=== PATIENT | female | born 2000 | race Caucasian/White ===

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

== ENCOUNTER 2021-08-26 12:15 | Day surgery (SDC) | payer OTHER ==
[~2021-08-26 12:15] MED LIST: SODIUM CHLORIDE 0.9% 1,000 ML IV SCH
[2021-08-26] MEDS ORDERED: SODIUM CHLORIDE 0.9% 500 ML 500 ML IV ONE (12:33)
[2021-08-26 12:47] VITALS: RESP 16; TEMP 98
[2021-08-26 17:35] VITALS: BP 139/78; PULSE 78
--- NOTE | 2021-08-26 19:24 | P.EPPROC ---
- EP Procedure Note Electrophysiology Procedure Note: Diagnosis Recurrent syncope Twelve-lead EKG showed sinus rhythm with normal TN narrow QRS normal ST segments Normal QT interval Vasovagal episode during IV line placement The patient had a syncopal spell, vasovagal spell with IV line placement She was treated with IV fluids and thereafter the tilt table testing was performed after waiting period of about 30 minutes Tilt table test will protocol Baseline blood pressure 121/61 mmHg, Baseline heart rate 81 beats a minute Patient was tilted upright at an angle of 70 degrees per protocol There was an immediate drop in blood pressure to 97/52 mmHg with associated sinus tachycardia 114 beats a minute She felt hot clammy and nauseous Following that her blood pressure normalized once again in heart rates remained in the 90s After 24 minutes she had yet another drop in blood pressure with sinus tachycardia at 115 beats a minute Once again she felt sick and heart However she recovered once again At the end of the procedure she was tired and weak but her blood pressure remained normal heart rates were in the 80s and she was laid supine Impression Normal twelve-lead EKG Vasovagal response associated with syncope with IV line placement Vasovagal phenomena but without syncope during tilt table test
== END 2021-08-26 15:08 | disposition home or self-care (01) ==
LOC: CATHEP 12:15
PROVIDERS: ATTEND Internal Medicine Clinical Cardiac Electrophysiology
DX: R55 Syncope and collapse (principal); Z20.822 Contact with and (suspected) exposure to COVID-19
CPT/HCPCS: 81025; 87635; 93660

== ENCOUNTER 2022-03-02 10:25 | Day surgery (SDC) | payer OTHER ==
[2022-03-02] MEDS ORDERED: SODIUM CHLORIDE 0.9% 1,000 ML IV ONE (10:34)
[2022-03-02] MEDS ORDERED: ONDANSETRON 4 MG/2 ML VIAL ONE (12:28)
[2022-03-02] MEDS ORDERED: fentaNYL (PF) 50 MCG/ML 2 ML AMP ONE (12:28)
[2022-03-02] MEDS ORDERED: PROPOFOL 10 MG/ML 20 ML VIAL IV ONE (12:28)
[2022-03-02] MEDS ORDERED: MIDAZOLAM 2 MG/2 ML VIAL ONE (12:28)
[2022-03-02] MEDS ORDERED: LIDOCAINE 1% INJ 10MG/ML (30 ML VIAL-PF) SQ ONE (13:15)
--- NOTE | 2022-03-02 14:11 | P.HPCAR ---
History of Present Illness This is Dr. Cifuentes dictating an H/P on this patient The patient was interviewed and examined IMPRESSION / ASSESSMENT: Recurrent palpitations despite nadolol Vasovagal phenomena and on tilt table testing Vasovagal syncope after IV line placement No syncope on Florinef PLAN: Diagnostic EP study and possible urinary frequency ablation for any inducible SVT or arrhythmia HPI Patient continues to have recurrent palpitations despite nadolol In the last one week and I asked her to hold nadolol her palpitations became worse She has not had any syncopal spells She denies any fever chills infection cough expectoration or UTI ROS: No fever chills or rigors, no cough, phlegm or expectoration, no nausea, vomiting or diarrhea, no hematuria, dysuria, no musculoskeletal complaints, no strokes or seizures, no skin lesions. EXAMINATION: Afebrile 98.5F pulse rate in the 70s normal respirations blood pressure 142/86. His mercury Breath sounds are clear no rhonchi no crackles Heart sounds is supposed 1 normal no murmurs or gallops or rub Extremities warm no edema No JVD No thyromegaly REVIEW OF LABS, ECG & MEDICAL DATA Beta-hCG normal Currently on Zoloft Synthroid Florinef and nadolol Physical Exam Vitals: Vital Signs Temp Pulse Resp BP Pulse Ox 03/02/22 10:48 98.5 F 75 16 142/86 98 Intake and Output 03/01/22 03/02/22 03/02/22 22:59 06:59 14:59 Intake Total 0 Balance 0 Intake: IV 0 Other: Weight 67.8 kg Past Medical History Past Medical History: Syncope, Thyroid Disorder Additional Past Medical History / Comment(s): Sx -"Sick dehydrated feeling", light- headed. dizziness. hot flashes at times. had elevated thyoid antibodies -. elevated heart rate- see dr cifuentes H & p History of Any Multi-Drug Resistant Organisms: None Reported Past Surgical History: No Surgical Hx Reported Past Anesthesia/Blood Transfusion Reactions: No Reported Reaction Smoking Status: Never smoker - Past Family History Mother Family Medical History: Seizure Disorder Father Family Medical History: No Reported History Physical Examination Vital Signs Temp Pulse Resp BP Pulse Ox 03/02/22 10:48 98.5 F 75 16 142/86 98 Intake and Output 03/01/22 03/02/22 03/02/22 22:59 06:59 14:59 Intake Total 0 Balance 0 Intake: IV 0 Other: Weight 67.8 kg Results Current Medications Generic Name Dose Route Start Last Admin Trade Name Shen PRN Reason Stop Dose Admin Sodium Chloride 1,000 mls @ 50 mls/hr 03/02/22 05:54 Saline 0.9% IV 04/01/22 05:55 .Q20H TAE Intake and Output 03/01/22 03/02/22 03/02/22 22:59 06:59 14:59 Intake Total 0 Balance 0 Intake: IV 0 Other: Weight 67.8 kg Patient Weight 03/03/22 06:59 Weight 67.8 kg
--- NOTE | 2022-03-02 14:47 | P.EPPROC ---
- EP Procedure Note Electrophysiology Procedure Note: Sudha Kelley/Mari Gao Nasrin underwent a diagnostic EP study for recurrent palpitations despite nadolol A diagnostic EP study was completely normal There was no evidence for AV node reentry, accessory pathway conduction or atrial tachycardia both on and off Isuprel Since she continues to have palpitations I would restart nadolol 20 mg by mouth daily She does have a fairly strong tendency for vasovagal episodes but after starting Florinef then been no syncopal spells I would watch her thyroid function on a regular basis Thank you for entrusting me with the care of the patient Warm regards Sincerely Wil Cifuentes
--- NOTE | 2022-03-02 15:00 | P.EPPROC ---
- EP Procedure Note Electrophysiology Procedure Note: Diagnosis Recurrent palpitations despite nadolol History of vasovagal syncope, no syncopal spells on Florinef Palpitations continue despite medical treatment Result Normal sinus node function No evidence for accessory pathway conduction No evidence for AV node reentry No evidence for inducible ventricular tachycardia or inducible SVT Intermittent spontaneous right bundle branch block aberrancy noted at higher sinus rates on Isuprel, normal finding Plan Restart nadolol Details Patient was brought to the EP lab in a fasting state. Under light sedation IV access was obtained in the left groin Diagnostic catheters were placed in the high right atrium, His bundle area, right ventricle and later the Bala sinus Baseline measurements are as follows and are normal Sinus cycle length 746 ms, TN interval 133 ms, QRS 101 ms and QT 397 ms Sinus recovery times at 600, 504 100 ms were 1141, 1106 and 1981 ms Chitosan so recovery times were within normal limits No evidence for any delta waves AV node Wenckebach block 360 seconds VA Wenckebach block 370 ms Art response to Parahisian pacing No evidence for slow pathway conduction No evidence for accessory pathway conduction Straight pacing and extrastimulation was performed from the right ventricle, coronary sinus and from the high right atrium This was repeated on high-dose Isuprel This was once again continued on low-dose Isuprel Straight pacing was then performed during recovery from Isuprel There was no evidence for SVT There was no evidence for VT Those was no evidence for any stroke pathway conduction accessory pathway conduction atrial tachycardia Intermittent spontaneous right bundle aberrancy noted Burst stimulation performed from multiple sites extra stimulation after triple extrastimuli performed on high-dose Isuprel Patient of the procedure well without any acute complications
[2022-03-02] MEDS ORDERED: ACETAMINOPHEN TAB 325 MG TAB PO PRN (15:58)
[2022-03-02] MEDS ORDERED: ACETAMINOPHEN IV (For NPO) 1,000 MG in EMPTY BAG 1 BAG IVPB ONE (17:00)
[2022-03-02 18:14] VITALS: RESP 18
[2022-03-02 19:53] VITALS: BP 116/63; PULSE 73; TEMP 98.7
== END 2022-03-02 20:13 | disposition home or self-care (01) ==
LOC: CATHEP 10:25 → 6NMEDSUR 14:33 → CATHEP 20:13
PROVIDERS: ATTEND Internal Medicine Clinical Cardiac Electrophysiology
DX: I47.29 Other ventricular tachycardia (principal); E03.9 Hypothyroidism, unspecified; Z82.0 Family history of epilepsy and other diseases of the nervous system; Z79.890 Hormone replacement therapy; Z79.899 Other long term (current) drug therapy
CPT/HCPCS: 93623; 93620; 84443; 81025; C1894; C1769 ×2; C1760; C1730 ×3; J2250; J2405; J2001; J3010; J2704

== ENCOUNTER 2022-03-11 17:44 | Emergency (ER) | payer OTHER ==
[2022-03-11 17:48] VITALS: RESP 16; TEMP 98.4
[2022-03-11] MEDS ORDERED: SODIUM CHLORIDE 0.9% 1,000 ML IV STA (19:34)
[2022-03-11 20:02] LABS: Basophils # (A) 0.1 k/uL (0-0.2); Basophils % (A) 1 %; Eosinophils # (A) 0.4 k/uL (0-0.7); Eosinophils % (A) 4 %; HGB 13.3 gm/dL (11.4-16.0); Lymphocytes # (A) 2.3 k/uL (1.0-4.8); Lymphocytes % (A) 27 %; MCH 30.8 pg (25.0-35.0); MCHC 33.2 g/dL (31.0-37.0); MCV 92.8 fL (80.0-100.0); Mean Platelet Volume 7.6; Monocytes # (A) 0.4 k/uL (0-1.0); Monocytes % (A) 5 %; Neutrophils # (A) 5.4 k/uL (1.3-7.7); Neutrophils % (A) 62 %; Platelet Count 334 k/uL (150-450); RBC 4.31 m/uL (3.80-5.40); RDW 13.3 % (11.5-15.5); WBC 8.8 k/uL (4.0-11.0)
[2022-03-11 20:13] LABS: ALT 15 U/L (4-34); AST 17 U/L (14-36); African American GFR (CKD) >90 (>60 ml/min/1.73 sqM); Albumin 3.9 g/dL (3.5-5.0); Alkaline Phosphatase 62 U/L (38-126); Anion Gap 7 mmol/L; Blood Urea Nitrogen 12 mg/dL (7-17); Calcium 8.9 mg/dL (8.4-10.2); Carbon Dioxide 26 mmol/L (22-30); Chloride 107 mmol/L (98-107); Glucose 91 mg/dL (74-99); INR 0.9 (<1.2); Magnesium 1.9 mg/dL (1.6-2.3); Non-African American GFR(CKD) >90 (>60 ml/min/1.73 sqM); Potassium 3.8 mmol/L (3.5-5.1); Prothrombin Time 9.8 sec (9.0-12.0); Sodium 140 mmol/L (137-145); Total Bilirubin 0.2 mg/dL (0.2-1.3); Total Protein 6.6 g/dL (6.3-8.2)
--- NOTE | 2022-03-11 20:14 | ED ---
Chest Pain HPI - General Chief Complaint: Chest Pain Stated Complaint: chest pain Time Seen by Provider: 03/11/22 19:22 Source: patient Mode of arrival: ambulatory Limitations: no limitations - History of Present Illness Initial Comments: Patient is a 21-year-old female presenting with chief complaint of chest pain. Patient states that pain is been ongoing for the last 4 hours. It is a sharp pain located primarily on the left upper side. It is worse with inspiration. It is worse on palpation. Patient also admits to worsening with movement and pu shing/pulling. She denies any shortness of breath. No palpitations or weakness. No nausea, vomiting, abdominal pain. No headache, vision or hearing changes, lower extremity swelling, numbness, tingling. Patient currently sees Dr. Luu for epidoes of tachycardia. - Related Data Home Medications Medication Instructions Recorded Confirmed Al[place]vera-28 1 tab PO DAILY 08/22/21 03/11/22 Sertraline [Zoloft] 25 mg PO DAILY 08/22/21 03/11/22 Fludrocortisone [Florinef] 0.1 mg PO DAILY 02/26/22 03/11/22 Levothyroxine Sodium [Synthroid] 25 mcg PO DAILY 02/26/22 03/11/22 nadoloL 20 mg PO DAILY 02/26/22 03/11/22 Allergies Allergy/AdvReac Type Severity Reaction Status Date / Time adhesive Allergy Rash/Hives Verified 03/11/22 20:47 Review of Systems ROS Statement: Those systems with pertinent positive or pertinent negative responses have been documented in the HPI. ROS Other: All systems not noted in ROS Statement are negative. Past Medical History Past Medical History: Syncope, Thyroid Disorder Additional Past Medical History / Comment(s): Sx -"Sick dehydrated feeling", light- headed. dizziness. hot flashes at times. had elevated thyoid antibodies -. elevated heart rate- see dr ulu H & p History of Any Multi-Drug Resistant Organisms: None Reported Past Surgical History: No Surgical Hx Reported Past Anesthesia/Blood Transfusion Reactions: No Reported Reaction Past Psychological History: ADD/ADHD, Anxiety Smoking Status: Never smoker Past Alcohol Use History: None Reported Past Drug Use History: None Reported - Past Family History Mother Family Medical History: Seizure Disorder Father Family Medical History: No Reported History General Exam Limitations: no limitations General appearance: alert, in no apparent distress Head exam: Present: atraumatic, normocephalic, normal inspection Eye exam: Present: normal appearance Neck exam: Present: normal inspection, full ROM Respiratory exam: Present: normal lung sounds bilaterally. Absent: respiratory distress, wheezes, rales, rhonchi, stridor Cardiovascular Exam: Present: regular rate, normal rhythm, normal heart sounds. Absent: systolic murmur, diastolic murmur, rubs, gallop, clicks Neurological exam: Present: alert, oriented X3, CN II-XII intact Psychiatric exam: Present: normal affect, normal mood Skin exam: Present: warm, dry, intact, normal color. Absent: rash Course Vital Signs 03/11/22 03/11/22 03/11/22 17:45 20:06 21:00 Temperature 98.4 F Pulse Rate 83 61 66 Respiratory 16 16 16 Rate Blood Pressure 152/93 126/62 125/76 O2 Sat by Pulse 97 99 99 Oximetry Chest Pain MDM - MDM Was pt. sent in by a medical professional or institution ([facility], [employer], urgent care, hospital, or intermediate...) When possible be specific @ -No Did you speak to anyone other than the patient for history (EMS, parent, family, police, friend...)? What history was obtained from this source @ -[No] Did you review nursing and triage notes (agree or disagree)? Why? @ -[I reviewed and agree with nursing and triage notes] Were old charts reviewed (outside hosp., previous admission, EMS record, old EKG, old radiological studies, urgent care reports/EKG's, intermediate records)? Report findings @ -[No old charts were reviewed] Differential Diagnosis (chest pain, altered mental status, abdominal pain women, abdominal pain men, vaginal bleeding, weakness, fever, dyspnea, syncope, headache, dizziness, GI bleed, back pain, seizure, CVA, palpatations, mental health)? @ -MDM Differential Chest Pain: Stable Angina, Unstable Angina, STEMI, NSTEMI Aortic Dissection, Pneumothorax, Musculoskeletal, Esophageal Spasm GERD, Cholecystitis, Pancreatitis, Zoster This is not meant to be an all-inclusive list. EKG interpreted by me (3pts min.). @ -Yes. Sinus rhythm. Ventricular rate 72. MO interval 148. QRS 86. QT 383. QTC 406. X-rays interpreted by me (1pt min.). @ -Yes, no acute cardiopulmonary process CT interpreted by me (1pt min.). @ -[None done] U/S interpreted by me (1pt. min.). @ -[None done] What testing was considered but not performed or refused? (CT, X-rays, U/S, labs)? Why? @ -[None] What meds were considered but not given or refused? Why? @ -[None] Did you discuss the management of the patient with other professionals (professionals i.e. , PA, [employer] WORKER, lab, RT, psych nurse, high school social studies tutor, scratch finisher, teacher, custodial officer, case advocate)? Give summary @ -[No] Was smoking cessation discussed for >3mins.? @ -[No] Was critical care preformed (if so, how long)? @ -[No] Were there social determinants of health that impacted care today? How? (Homelessness, low income, unemployed, alcoholism, drug addiction, transportation, low edu. Level, literacy, decrease access to med. care, [facility], rehab)? @ -[No] Was there de-escalation of care discussed even if they declined (Discuss DNR or withdrawal of care, Hospice)? DNR status @ -[No] What co-morbidities impacted this encounter? (DM, HTN, Smoking, COPD, CAD, Cancer, CVA, ARF, Chemo, Hep., AIDS, mental health diagnosis, sleep apnea, morbid obesity)? @ -[None] Was patient admitted / discharged? Hospital course, mention meds given and rout e, prescriptions, significant lab abnormalities, going to OR and other pertinent info. @ -Patient is a 21-year-old female presenting with chief complaint of chest pain. Located primarily on the left side, some neck pain as well. Lab work is grossly negative. Chest x-ray shows no ischemic changes. Urine shows signs of contamination, some for culture. HCG is negative. Patient is negative for influenza, RSV, and Covid. Pain is likely musculoskeletal in origin, may be a cervical radiculopathy. Educated patient on these findings on supportive treatment. Follow-up with PCP. Report back to ER with any new or worsening symptoms. Discussed return parameters and answered all questions. Patient conveyed verbal understanding and agreed to the plan. I discussed this case in detail with my attending Dr. Carranza Undiagnosed new problem with uncertain prognosis? @ -[No] Drug Therapy requiring intensive monitoring for toxicity (Heparin, Nitro, Insulin, Cardizem)? @ -[No] Were any procedures done? @ -[No] Diagnosis/symptom? @ -Atypical chest pain Acute, or Chronic, or Acute on Chronic? @ -Acute Uncomplicated (without systemic symptoms) or Complicated (systemic symptoms)? @ -Uncomplicated Side effects of treatment? @ -[No] Exacerbation, Progression, or Severe Exacerbation? @ -[No] Poses a threat to life or bodily function? How? (Chest pain, [place], [place], pneumonia, PE, COPD, DKA, ARF, appy, cholecystitis, CVA, Diverticulitis, Homicidal, Suicidal, threat to staff... and all critical care pts) @ -[No] Disposition Clinical Impression: Atypical chest pain, Cervical radiculopathy Disposition: HOME SELF-CARE Condition: Good Instructions (If sedation given, give patient instructions): Chest Pain (ED), Cervical Radiculopathy (ED) Additional Instructions: Follow-up with PCP. Report back to ER with any new or worsening symptoms. Take Motrin and Tylenol as needed for pain control. Utilize heat and ice as needed for pain control. Is patient prescribed a controlled substance at d/c from ED?: No Referrals: Audrey Beaver MD [Primary Care Provider] - 1-2 days Time of Disposition: 21:57
[2022-03-11 21:08] VITALS: BP 125/76; PULSE 66
--- NOTE | 2022-03-11 21:12 | XR ---
EXAMINATION TYPE: XR chest 2V DATE OF EXAM: 03/11/2022 8:50 PM COMPARISON: None TECHNIQUE: XR chest 2V Frontal and lateral views of the chest. CLINICAL INDICATION:Female, 21 years old with history of Chest Pain; FINDINGS: Lungs/Pleura: There is no evidence of pleural effusion, focal consolidation, or pneumothorax. Pulmonary vascularity: Unremarkable. Heart/mediastinum: Cardiomediastinal silhouette is unremarkable. Musculoskeletal: No acute osseous pathology. IMPRESSION: No acute cardiopulmonary disease/process.
[2022-03-11 21:19] LABS: Amorphous Sediment,Urine Few /hpf; Appearance,Urine Cloudy (Clear); Bacteria,Urine Rare /hpf; Bilirubin,Urine Negative (Negative); Blood,Urine Negative (Negative); Color,Urine Yellow; Glucose,Urine (UA) Negative (Negative); Ketones,Urine Negative (Negative); Leukocyte Esterase,Urine Moderate (Negative); Mucus,Urine Few /hpf; Nitrite,Urine Negative (Negative); Protein,Urine Trace (Negative); RBC,Urine 3 /hpf (0-5); Specific Gravity,Urine 1.026 (1.001-1.035); Squamous Epithelial Cell,Urine 7 /hpf (0-4); Urobilinogen,Urine <2.0 mg/dL (<2.0); WBC,Urine 4 /hpf (0-5)
[2022-03-11] MEDS ORDERED: KETOROLAC 15 MG/ML 1 ML VIAL IVP STA (21:34)
[2022-03-11] MEDS ORDERED: DEXAMETHASONE SOD PHOSPHATE 10 MG/ML 1 ML VIAL IVP STA (21:55)
== END 2022-03-11 22:25 | disposition home or self-care (01) ==
LOC: EC 17:44
DX: R07.89 Other chest pain (principal); M54.12 Radiculopathy, cervical region; E07.9 Disorder of thyroid, unspecified; F41.9 Anxiety disorder, unspecified; Z79.890 Hormone replacement therapy; Z20.822 Contact with and (suspected) exposure to COVID-19
CPT/HCPCS: 36415; 93005; 80053; 83735; 84484; 85025; 85610; 85730; 81001; 81025; 87636; 71046; 99285; 96374; 96375; 96361; J1100; J1885

== ENCOUNTER 2022-07-22 09:46 | Emergency (ER) | payer OTHER ==
[2022-07-22 10:13] LABS: Basophils % (A) 0 %; Eosinophils # (A) 0.1 k/uL (0-0.7); Eosinophils % (A) 1 %; HCT 46.3 % (34.0-46.0); HGB 14.7 gm/dL (11.4-16.0); Lymphocytes # (A) 1.5 k/uL (1.0-4.8); Lymphocytes % (A) 18 %; MCH 30.1 pg (25.0-35.0); MCHC 31.7 g/dL (31.0-37.0); Monocytes # (A) 0.4 k/uL (0-1.0); Monocytes % (A) 5 %; Neutrophils # (A) 6.3 k/uL (1.3-7.7); Neutrophils % (A) 74 %; Platelet Count 313 k/uL (150-450); RBC 4.87 m/uL (3.80-5.40); RDW 13.1 % (11.5-15.5); WBC 8.5 k/uL (4.0-11.0)
[2022-07-22] MEDS ORDERED: SODIUM CHLORIDE 0.9% 1,000 ML IV STA (10:15)
[2022-07-22] MEDS ORDERED: ONDANSETRON 4 MG/2 ML VIAL IVP STA (10:15)
[2022-07-22] MEDS ORDERED: MORPHINE SULFATE 4 MG/ML SYRINGE IVP STA (10:15)
--- NOTE | 2022-07-22 10:15 | ED ---
Chest Pain HPI - General Chief Complaint: Chest Pain Stated Complaint: Chest Pain, SOB, Time Seen by Provider: 07/22/22 09:56 Source: patient, RN notes reviewed Mode of arrival: ambulatory Limitations: no limitations - History of Present Illness Initial Comments: Patient is 21-year-old female presenting to the emergency room with complaints of left-sided chest pain that is worse with movement and deep inspiration. Movement of her left arm increases pain significantly. She believes the pain is radiating out from her anterior first rib region. She has attempted multiple things to improve her pain including utilizing kinetic tape, Tylenol and Motrin without any improvement in symptoms. She has had it extensive cardiovascular testing recently and is following with Dr. Shannon. There is plans for outpatient workup for thoracic outlet syndrome. She denies any typical chest pain, shortness of breath not directly related to pain, abdominal pain, nausea, vomiting, headache, dizziness, diaphoresis, fevers or chills. She has a past medical history in addition to her current cardiovascular workup significant for hypothyroidism. MD Complaint: chest pain - Related Data Home Medications Medication Instructions Recorded Confirmed [place]a-28 1 tab PO DAILY 08/22/21 07/22/22 Levothyroxine Sodium [Synthroid] 25 mcg PO DAILY 02/26/22 07/22/22 nadoloL 20 mg PO DAILY 02/26/22 07/22/22 Sertraline [Zoloft] 50 mg PO DAILY 07/22/22 07/22/22 amLODIPine [Norvasc] 2.5 mg PO HS 07/22/22 07/22/22 Previous Rx's Medication Instructions Recorded traMADol HCL 50 mg PO Q6H PRN 5 Days #20 tab 07/22/22 Allergies Allergy/AdvReac Type Severity Reaction Status Date / Time adhesive Allergy Rash/Hives Verified 07/22/22 11:00 Review of Systems ROS Statement: Those systems with pertinent positive or pertinent negative responses have been documented in the HPI. ROS Other: All systems not noted in ROS Statement are negative. Past Medical History Past Medical History: Syncope, Thyroid Disorder Additional Past Medical History / Comment(s): Sx -"Sick dehydrated feeling", light- headed. dizziness. hot flashes at times. had elevated thyoid antibodies -. elevated heart rate- see dr luu H & p History of Any Multi-Drug Resistant Organisms: None Reported Past Surgical History: No Surgical Hx Reported Past Anesthesia/Blood Transfusion Reactions: No Reported Reaction Past Psychological History: ADD/ADHD, Anxiety Smoking Status: Never smoker Past Alcohol Use History: None Reported Past Drug Use History: None Reported - Past Family History Mother Family Medical History: Seizure Disorder Father Family Medical History: No Reported History General Exam Limitations: no limitations General appearance: alert, in no apparent distress Head exam: Present: atraumatic, normocephalic, normal inspection Eye exam: Present: normal appearance, PERRL, EOMI. Absent: scleral icterus, conjunctival injection, periorbital swelling ENT exam: Present: normal exam, mucous membranes moist Neck exam: Present: normal inspection, full ROM Respiratory exam: Present: normal lung sounds bilaterally, chest wall tenderness, other (Reproducible chest pain left chest wall upper). Absent: respiratory distress, wheezes, rales, rhonchi, stridor Cardiovascular Exam: Present: regular rate, normal rhythm, normal heart sounds. Absent: systolic murmur, diastolic murmur, rubs, gallop, clicks GI/Abdominal exam: Present: soft, normal bowel sounds. Absent: distended, tenderness, guarding, rebound, rigid Extremities exam: Present: normal inspection, full ROM. Absent: pedal edema, joint swelling Back exam: Present: normal inspection Neurological exam: Present: alert, oriented X3, CN II-XII intact Psychiatric exam: Present: normal affect, normal mood Skin exam: Present: warm, dry, intact, normal color. Absent: rash Course Vital Signs 07/22/22 07/22/22 07/22/22 09:51 11:17 12:29 Temperature 97.6 F 98.1 F Pulse Rate 76 64 76 Respiratory 18 19 18 Rate Blood Pressure 147/110 130/81 138/91 O2 Sat by Pulse 99 100 98 Oximetry Chest Pain MDM - MDM Was pt. sent in by a medical professional or institution (, PA, PUBLIC ADDRESS SYSTEM OPERATOR, urgent care, hospital, or detention...) When possible be specific @ -No Did you speak to anyone other than the patient for history (EMS, parent, family, police, friend...)? What history was obtained from this source @ -No Did you review nursing and triage notes (agree or disagree)? Why? @ -I reviewed and agree with nursing and triage notes Were old charts reviewed (outside hosp., previous admission, EMS record, old EKG, old radiological studies, urgent care reports/EKG's, detention records)? Report findings @ -No old charts were reviewed Differential Diagnosis (chest pain, altered mental status, abdominal pain women, abdominal pain men, vaginal bleeding, weakness, fever, dyspnea, syncope, headache, dizziness, GI bleed, back pain, seizure, CVA, palpatations, mental health, musculoskeletal)? @ -Differential Chest Pain: Stable Angina, Unstable Angina, STEMI, NSTEMI Aortic Dissection, Pneumothorax, Musculoskeletal, Esophageal Spasm GERD, Cholecystitis, Pancreatitis, Zoster, this is not meant to be an all-inclusive list. EKG interpreted by me (3pts min.). @ -Sinus rhythm with short RI interval and occasional PVC, ventricular rate 75 bpm, RI interval 108 ms, QRS duration 93 ms, QT/QTC 389/419 ms, PRT axs 70, 23,50 X-rays interpreted by me (1pt min.). @ -Chest x-ray two-view: No consolidation, pneumothorax or pleural effusion. CT interpreted by me (1pt min.). @ -None done U/S interpreted by me (1pt. min.). @ -None done What testing was considered but not performed or refused? (CT, X-rays, U/S, labs)? Why? @ -None What meds were considered but not given or refused? Why? @ -None Did you discuss the management of the patient with other professionals (professionals i.e. , PA, PUBLIC ADDRESS SYSTEM OPERATOR, lab, RT, psych nurse, social media analyst, bumper and painter, teacher, diplomatic officer, case management manager)? Give summary @ -No Was smoking cessation discussed for >3mins.? @ -No Was critical care preformed (if so, how long)? @ -No Were there social determinants of health that impacted care today? How? (Homelessness, low income, unemployed, alcoholism, drug addiction, transpo rtation, low edu. Level, literacy, decrease access to med. care, fci, rehab)? @ -No Was there de-escalation of care discussed even if they declined (Discuss DNR or withdrawal of care, Hospice)? DNR status @ -No What co-morbidities impacted this encounter? (DM, HTN, Smoking, COPD, CAD, Cancer, CVA, ARF, Chemo, Hep., AIDS, mental health diagnosis, sleep apnea, morbid obesity)? @ -None Was patient admitted / discharged? Hospital course, mention meds given and route, prescriptions, significant lab abnormalities, going to OR and other pertinent info. @ -21-year-old female presenting to the emergency room with complaints of left-sided chest pain that is worse with inspiration and movement. Also reports nausea and vomiting. Reproducible chest pain low probability for ischemia. Will give morphine for pain along with Zofran for nausea. Will start workup for chest pain with chest x-ray, EKG, CBC, CMP, d-dimer, coags, magnesium will also obtain viral swelling for COVID, influenza and RSV in the setting of nausea vomiting shortness of breath. EKG demonstrates sinus rhythm with short RI interval and PVC. Chest x-ray negative for acute cardiopulmonary process. Coags normal. D-dimer normal. Troponin negative. CMP without any abnormalities including normal electrolytes, hepatic function and renal function. Magnesium normal. TSH normal. Vial testing for COVID, RSV and influenza negative. Findings discussed with patient and father at bedside. Pain improved with morphine. Advised no indication for further diagnostic imaging or laboratory studies here in the emergency room. Encouraged continued follow-up with cardiology and continued workup for possible thoracic outlet syndrome. Encouraged continued use of kinetic tape and range of motion as tolerated if helpful with pain. Will short course of tramadol in addition to [id number] Tylenol to help with pain. Will discharge home in stable condition with continued symptomatic treatment of atypical chest pain advising follow-up with cardiology and primary care provider as scheduled. Undiagnosed new problem with uncertain prognosis? @ -No Drug Therapy requiring intensive monitoring for toxicity (Heparin, Nitro, Insulin, Cardizem)? @ -No Were any procedures done? @ -No Diagnosis/symptom? @ -Atypical chest pain Acute, or Chronic, or Acute on Chronic? @ -Acute on chronic Uncomplicated (without systemic symptoms) or Complicated (systemic symptoms)? @ -Uncomplicated Side effects of treatment? @ -No Exacerbation, Progression, or Severe Exacerbation? @ -No Poses a threat to life or bodily function? How? (Chest pain, [place], [place], pneumonia, PE, COPD, DKA, ARF, appy, cholecystitis, CVA, Diverticulitis, Homicidal, Suicidal, threat to staff... and all critical care pts) @ -No Case discussed Dr. Dickson. Disposition Clinical Impression: Atypical chest pain Disposition: HOME SELF-CARE Instructions (If sedation given, give patient instructions): Chest Pain (ED), Costochondritis (ED) Additional Instructions: Please continue your blood pressure medication as prescribed. Utilize tramadol as for pain may utilize Tylenol as needed for breakthrough pain in addition to tramadol. Please follow up with your digital imaging specialist and primary care provider. Please return to the Emergency Department if symptoms worsen or any other concerns. Prescriptions: traMADol HCL 50 mg PO Q6H PRN 5 Days #20 tab PRN Reason: Pain Is patient prescribed a controlled substance at d/c from ED?: No Referrals: Audrey Beaver MD [Primary Care Provider] - 1-2 days Wil Luu MD [STAFF PHYSICIAN] - 1-2 days Time of Disposition: 12:20
[2022-07-22 10:22] LABS: Partial Thromboplastin Time 24.1 sec (22.0-30.0); Prothrombin Time 10.4 sec (9.0-12.0)
[2022-07-22 10:25] LABS: ALT 16 U/L (4-34); AST 22 U/L (14-36); African American GFR (CKD) >90 (>60 ml/min/1.73 sqM); Albumin 4.5 g/dL (3.5-5.0); Alkaline Phosphatase 73 U/L (38-126); Anion Gap 12 mmol/L; Blood Urea Nitrogen 9 mg/dL (7-17); Calcium 9.3 mg/dL (8.4-10.2); Carbon Dioxide 23 mmol/L (22-30); Chloride 104 mmol/L (98-107); Glucose 84 mg/dL (74-99); Magnesium 1.7 mg/dL (1.6-2.3); Non-African American GFR(CKD) >90 (>60 ml/min/1.73 sqM); Potassium 3.9 mmol/L (3.5-5.1); Sodium 139 mmol/L (137-145); Total Bilirubin 1.2 mg/dL (0.2-1.3); Total Protein 7.5 g/dL (6.3-8.2)
--- NOTE | 2022-07-22 10:32 | XR ---
EXAMINATION TYPE: XR chest 2V DATE OF EXAM: 07/22/2022 10:26 AM COMPARISON: Chest radiographs from 03/11/2022 TECHNIQUE: XR chest 2V Frontal and lateral views of the chest. CLINICAL INDICATION:Female, 21 years old with history of Chest Pain; FINDINGS: Lungs/Pleura: There is no evidence of pleural effusion, focal consolidation, or pneumothorax. Pulmonary vascularity: Unremarkable. Heart/mediastinum: Cardiomediastinal silhouette is unremarkable. Musculoskeletal: No acute osseous pathology. IMPRESSION: No acute cardiopulmonary disease/process.
[2022-07-22 12:31] VITALS: BP 138/91; PULSE 76; RESP 18; TEMP 98.1
== END 2022-07-22 12:30 | disposition home or self-care (01) ==
LOC: EC 09:46
DX: R07.89 Other chest pain (principal); E03.9 Hypothyroidism, unspecified; F90.9 Attention-deficit hyperactivity disorder, unspecified type; F41.9 Anxiety disorder, unspecified; Z79.899 Other long term (current) drug therapy; Z91.09 Other allergy status, other than to drugs and biological substances; Z79.890 Hormone replacement therapy
CPT/HCPCS: 36415; 93005; 85379; 80053; 84443; 83735; 84484; 85025; 85610; 85730; 87636; 71046; 99285; 96374; 96375; 96361 ×2; J2270; J2405